=== PATIENT | male | born 1985 ===

== ENCOUNTER 2021-03-06 11:51 | Emergency (ER) | payer SELFPAY ==
[~2021-03-06] VITALS: Ht 175.3 cm; Wt 67.0 kg
[2021-03-06 12:04] VITALS: BP 156/103
[2021-03-06] MEDS ORDERED: SODIUM CHLORIDE FLUSH 10ML SYR IVF ONE (12:30)
[2021-03-06] MEDS ORDERED: SODIUM CHLORIDE 0.9% 1,000ML IVBOLUS ONE (12:30)
[2021-03-06 12:42] LABS: PH, VENOUS 7.371 pH (7.320-7.420)
[2021-03-06 12:45] LABS: BASOPHILS % (AUTO) 1 % (0-1); EOSINOPHILS % (AUTO) 1 % (1-7); LYMPHOCYTES % (AUTO) 31 % (22-44); MEAN CORPUSCULAR HEMOGLOBIN 30.7 pg (27.5-34.5); MEAN CORPUSCULAR HGB CONC 34.3 g/dL (33.2-36.2); MEAN PLATELET VOLUME 8.5 fL (7.4-10.4); MONOCYTES % (AUTO) 9 % (2-9); NEUTROPHILS % (AUTO) 59 % (42-75); PLATELET COUNT 375 x10^3/uL (130-400); RED CELL DISTRIBUTION WIDTH 12.9 % (9.4-14.8)
[2021-03-06 13:00] LABS: ALBUMIN 3.3 g/dL (3.4-5.0); ANION GAP 2 mmol/L (5-15); CALCIUM 8.7 mg/dL (8.5-10.1); CHLORIDE 99 mmol/L (98-107)
[2021-03-06 13:05] LABS: ALANINE AMINOTRANSFERASE 18 U/L (12-78); ALKALINE PHOSPHATASE 69 U/L (45-117); BILIRUBIN,TOTAL 1.3 mg/dL (0.2-1.0); CREATININE 0.75 mg/dL (0.7-1.3); TOTAL PROTEIN 6.8 g/dL (6.4-8.2)
--- NOTE | 2021-03-06 13:48 | NUR ---
N/A WHEN ATTEMPTING TO ROOM PT AT THIS TIME
--- NOTE | 2021-03-06 13:58 | NUR ---
NA X 2
--- NOTE | 2021-03-06 14:05 | NUR ---
ATTEMPTED TO CALL PT TO DISCUSS BG, NO PHONE NUMBER LISTED, UNABLE TO CALL PT.
--- NOTE | 2021-03-06 14:14 | NUR ---
NO ANSWER X 3
[2021-03-06 15:54] LABS: ACETONE, SERUM Negative (Negative)
[2021-03-06] MEDS ORDERED: CLOTRIMAZOLE CRM 1%, 15GM TP SCH (21:00)
== END 2021-03-06 14:16 | disposition left against medical advice (07) ==
LOC: ED 12:00
DX: N47.6 Balanoposthitis (principal); R73.9 Hyperglycemia, unspecified
CPT/HCPCS: 36415; 80053; 82010; 82803; 82962; 85025; 99283